=== PATIENT | female | born 1955 | race Caucasian/White ===

== ENCOUNTER → 2016-12-18 | Outpatient (CLI) | payer MEDICARE, OTHER ==
[~2016-12-18] MED LIST: ALORA1 EACH TD; ASPIRIN81 MG PO; COLACE50 MG/5 ML PO; DEXTROAMPHETAMIN5 M2 PO; FLONASE 0.05% N16 G1; GABAPENTIN300 M2 PO; HYDROCODON-ACE1 EAC5 PO; KLONOPIN1 MG PO; RANITIDINE H15 MG/ML PO; REMERON SOLTAB15 MG DOB
== END | disposition home or self-care (01) ==
LOC: CRAD 09:40
DX: K22.4 Dyskinesia of esophagus (principal)
CPT/HCPCS: 74230; 92611; G8996-GN; G8997-GN; G8998-GN